=== PATIENT | female | born 1970 | race Caucasian/White ===

== ENCOUNTER 2017-12-11 13:46 | Outpatient (CLI) | payer BC | END 2017-12-11 13:47 | disposition home or self-care (01) | LOC: BICMAMMO 13:46 | PROVIDERS: ATTEND Physician Assistant | DX: Z12.31 Encounter for screening mammogram for malignant neoplasm of breast (principal); Z85.89 Personal history of malignant neoplasm of other organs and systems; Z80.3 Family history of malignant neoplasm of breast; Z98.890 Other specified postprocedural states | CPT/HCPCS: 77063; 77067 ==

== ENCOUNTER 2020-06-19 07:19 | Outpatient (CLI) | payer BC, OTHER ==
[2020-06-20 12:33] LABS: SARS-CoV-2 MS2 Positive; SARS-CoV-2 N Gene Negative; SARS-CoV-2 S Gene Negative; SARS-CoV-2 by NAA Not Detected (NotDetected); SARS-CoV-2 orf1ab Negative
== END 2020-06-19 07:20 | disposition home or self-care (01) ==
LOC: LABBT 07:19
PROVIDERS: ATTEND Orthopaedic Surgery
DX: M67.431 Ganglion, right wrist (principal); Z20.828 Contact with and (suspected) exposure to other viral communicable diseases
CPT/HCPCS: 87635; U0003

== ENCOUNTER 2020-06-22 06:06 | Day surgery (SDC) | payer BC ==
[2020-06-20 16:06] VITALS: BMI 31.8
[2020-06-22] MEDS ORDERED: CEFAZOLIN 1 GM VIAL ONE (06:33)
[2020-06-22] MEDS ORDERED: Lidocaine 1% w/Epinephrine 1:100K 20 ML VIAL ONE (06:33)
[2020-06-22] MEDS ORDERED: Sodium Chloride 0.9% 100 ML ONE (06:33)
[2020-06-22] MEDS ORDERED: Midazolam HCl 2 mg/2 ml Vial ONE ×2 (06:48→07:01)
[2020-06-22] MEDS ORDERED: Fentanyl 100 MCG/2 ML VIAL ONE ×2 (06:48→08:39)
[2020-06-22] MEDS ORDERED: Scopolamine 1.5 mg/72 hour Patch ONE (07:01)
[2020-06-22] MEDS ORDERED: Ketorolac Tromethamine 30 MG/ML VIAL ONE (08:39)
--- NOTE | 2020-06-22 08:42 | OP ---
DATE OF PROCEDURE: 06/22/2020 TITLE OF PROCEDURE: Excision of ganglion cyst, recurrent type, right wrist. PREOPERATIVE DIAGNOSIS: Recurrent ganglion, right wrist. POSTOPERATIVE DIAGNOSIS: Recurrent ganglion, right wrist. ANESTHESIA: General. BLOOD LOSS: Minimal. SPECIMENS: None. DRAINS: None. COMPLICATIONS: None. DESCRIPTION OF PROCEDURE: The patient was taken to the operating room where general anesthesia was induced. Right arm was prepped and draped in the usual sterile fashion. I opened up the old scar. Dissection was carried down to the radial artery and the FCR tendon sheath. I dissected down all the way to the radioscaphoid joint following the stalk of the ganglion down. This had been amputated at the level of the joint. I coagulated the opening of the cyst with cautery. Tourniquet was released. Irrigation was performed. Skin was closed with nylon suture and a sterile dressing was applied. Job ID: [id number]
[2020-06-22] MEDS ORDERED: Lidocaine 1% PF 5 ML VIAL ONE (11:36)
[2020-06-22] MEDS ORDERED: PROPOFOL 200 MG/20 ML VIAL ONE (11:36)
[2020-06-22] MEDS ORDERED: Dexamethasone 20 MG/5 ML VIAL ONE (11:36)
[2020-06-22] MEDS ORDERED: Ondansetron PF 4 MG/2 ML Vial ONE (11:36)
== END 2020-06-22 09:50 | disposition home or self-care (01) ==
LOC: SDC 06:06
PROVIDERS: ATTEND Orthopaedic Surgery
PROC: 0LB50ZZ Excision of Right Lower Arm and Wrist Tendon, Open Approach (ICD-10-PCS; principal; 2020-06-22)
DX: M67.431 Ganglion, right wrist (principal); M19.90 Unspecified osteoarthritis, unspecified site; F41.9 Anxiety disorder, unspecified; E78.00 Pure hypercholesterolemia, unspecified; F32.9 Major depressive disorder, single episode, unspecified; E89.0 Postprocedural hypothyroidism; Z87.891 Personal history of nicotine dependence; Z79.899 Other long term (current) drug therapy; Z91.013 Allergy to seafood; Z98.84 Bariatric surgery status
CPT/HCPCS: J0690; J1100; J1885; J2250; J2405; J2704; J3010; J3490

== ENCOUNTER 2025-05-18 08:56 | Outpatient (CLI) | payer BC ==
[2025-05-18 10:34] LABS: #Basophils 0.05 10x3/uL (0.0-0.2); #Eosinophils 0.14 10x3/uL (0.0-0.7); #Monocytes 0.55 10x3/uL (0.11-0.59); #Neutrophils 3.50 10x3/uL (1.40-6.50); %Basophils 0.8 % (0.0-1.0); %Eosinophils 2.2 % (0.0-10.0); %Lymphocytes 33.2 % (21.0-51.0); %Monocytes 8.6 % (0.0-10.0); %Neutrophils 54.7 % (42.0-75.0); Hematocrit 40.2 % (36.0-47.0); Hemoglobin 12.6 g/dL (12.0-16.0); Mean Corpuscular Hemoglobin 28.6 pg (27.0-31.0); Mean Corpuscular Volume 91.4 fL (78.0-98.0); Platelet Count 315 10x3/uL (130-400); Red Blood Cell (RBC) Count 4.40 mill/uL (4.20-5.40); White Blood Cell (WBC) Count 6.39 10x3/uL (4.8-10.8)
== END 2025-05-18 08:57 | disposition home or self-care (01) ==
LOC: LABBT 08:56
PROVIDERS: ATTEND Orthopaedic Surgery Hand Surgery
DX: Z01.818 Encounter for other preprocedural examination (principal); M67.431 Ganglion, right wrist
CPT/HCPCS: 85025; 93005; 93010

== ENCOUNTER 2025-05-26 08:09 | Day surgery (SDC) | payer BC ==
[2025-05-18 09:23] VITALS: BMI 25.7
[2025-05-26] MEDS ORDERED: Bacitracin Zinc Ointment 30 gm TUBE ONE (09:49)
[2025-05-26] MEDS ORDERED: fentaNYL PF 100 MCG/2 ML SYRINGE ONE (10:01)
[2025-05-26] MEDS ORDERED: PROPOFOL 20 ML ONE (10:01)
[2025-05-26] MEDS ORDERED: Lidocaine 1% PF 5 ML VIAL ONE (10:01)
[2025-05-26] MEDS ORDERED: Ondansetron PF 4 MG/2 ML Vial ONE (10:01)
[2025-05-26] MEDS ORDERED: CEFAZOLIN 2 GM VIAL ONE (10:04)
[2025-05-26] MEDS ORDERED: Ketorolac Tromethamine 30 MG (1 mL) VIAL ONE (12:24)
== END 2025-05-26 14:13 | disposition home or self-care (01) ==
LOC: SDC 08:09
PROVIDERS: ATTEND Orthopaedic Surgery Hand Surgery
PROC: 0LB70ZZ Excision of Right Hand Tendon, Open Approach (ICD-10-PCS; principal; 2025-05-26)
DX: M67.431 Ganglion, right wrist (principal); M77.8 Other enthesopathies, not elsewhere classified; E78.00 Pure hypercholesterolemia, unspecified; F32.A Depression, unspecified; F41.9 Anxiety disorder, unspecified; K21.9 Gastro-esophageal reflux disease without esophagitis; Z98.890 Other specified postprocedural states; Z91.013 Allergy to seafood; Z87.891 Personal history of nicotine dependence; Z79.899 Other long term (current) drug therapy
CPT/HCPCS: 88304; A6223; J0665; J1100; J1885; J2250; J2405; J2704; J3010